=== PATIENT | female | born 1990 | race African-American/Black ===

== ENCOUNTER 2016-07-15 14:35 | Emergency (ER) | payer MEDICAID ==
--- NOTE | 2016-07-15 14:57 | ER Document Report ---
ED Medical Screen (RME) - General Stated Complaint: STOMACH PAIN Time seen by provider: 14:56 Mode of Arrival: Ambulatory Information source: Patient Notes: 26-year-old female complaining of low abdominal pain and dysuria. She thinks she might have a urinary tract infection she saw some blood in her urine yesterday. No vaginal discharge. She did vomit once yesterday. No diarrhea. No fever or chills. LMP 12-23 TRAVEL OUTSIDE OF THE [place] IN LAST 30 DAYS: No - Related Data Allergies/Adverse Reactions: No Known Allergies Allergy (Verified 07/15/16 14:54) Past Medical History - Immunizations Hx Diphtheria, Pertussis, Tetanus Vaccination: Yes Physical Exam - Vital signs Vitals: Temp Pulse Resp BP Pulse Ox 98.0 F 62 16 126/66 H 100 07/15/16 14:51 07/15/16 14:51 07/15/16 14:51 07/15/16 14:51 07/15/16 14:51 Course - Vital Signs Vital signs: Temp Pulse Resp BP Pulse Ox 98.0 F 62 16 126/66 H 100 07/15/16 14:51 07/15/16 14:51 07/15/16 14:51 07/15/16 14:51 07/15/16 14:51
--- NOTE | 2016-07-15 15:40 | ER Document Report ---
ED GI/ - General Mode of Arrival: Ambulatory TRAVEL OUTSIDE OF THE [place] IN LAST 30 DAYS: No - HPI Patient complains to provider of: Abdominal pain, Pelvic pain Onset: Yesterday Location: Epigastric, Pelvis Menstrual period history: Irregular Associated symptoms: Other - see above - General Chief Complaint: Abdominal Pain Stated Complaint: STOMACH PAIN Notes: 26 year old female with history of gonorrhea infection ("years ago") presents to the ED complaining of epigastric and pelvic pain that started yesterday. Patient additionally complains of hematuria, and denies burning with urination, abnormal bowel movements, or vaginal discharge. Patient states that she has a history of irregular menstrual periods and explains that she missed her period in April and May, with a normal cycle in June. Patient explains that she had a similar episode of abdominal and pelvic pain back in April and May. Patient has been twice with 1 . Patient receives OB[facility]IC[facility] [place]. ([facility]) - Related Data Allergies/Adverse Reactions: No Known Allergies Allergy (Verified 07/15/16 14:54) Past Medical History - General Information source: Patient - Social History Smoking Status: Current Every Day Smoker Chew tobacco use (# tins/day): No Frequency of alcohol use: Occasional Drug Abuse: None Family History: Reviewed & Not Pertinent Patient has suicidal ideation: No Patient has homicidal ideation: No Renal/ Medical History: Reports: Other - history of Conorrhea Surgical Hx: Negative - Immunizations Hx Diphtheria, Pertussis, Tetanus Vaccination: Yes Review of Systems - Review of Systems Constitutional: No symptoms reported EENT: No symptoms reported Cardiovascular: No symptoms reported Respiratory: No symptoms reported Gastrointestinal: See HPI, Abdominal pain - epigastric, Nausea Genitourinary: See HPI, Hematuria, Pain - pelvic. denies: Burning Female Genitourinary: See HPI, Irregular period. denies: Vaginal discharge Musculoskeletal: No symptoms reported Skin: No symptoms reported Hematologic/Lymphatic: No symptoms reported Neurological/Psychological: No symptoms reported -: Yes All other systems reviewed and negative Physical Exam - Vital signs Interpretation: Normal - General General appearance: Alert In distress: None - HEENT Head: Normocephalic, Atraumatic Eyes: Normal Extraocular movements intact: Yes Pupils: PERRL - Respiratory Respiratory status: No respiratory distress Breath sounds: Normal - Cardiovascular Rhythm: Regular Heart sounds: Normal auscultation - Abdominal Inspection: Normal Distension: No distension Bowel sounds: Normal Tenderness: Tender - mild suprapubic TTP - Back Back: Normal - Extremities General upper extremity: Normal inspection, Normal ROM General lower extremity: Normal inspection, Normal ROM - Neurological Neuro grossly intact: Yes Cognition: Normal Orientation: AAOx4 Jeff Coma Scale Eye Opening: Spontaneous Jeff Coma Scale Verbal: Oriented Jeff Coma Scale Motor: Obeys Commands [place] Coma Scale Total: 15 Speech: Normal - Psychological Associated symptoms: Normal affect, Normal mood - Skin Skin Temperature: Warm Skin Moisture: Dry Skin Color: Normal - Vital signs Vitals: Temp Pulse Resp BP Pulse Ox 98.0 F 62 16 126/66 H 100 07/15/16 14:51 07/15/16 14:51 07/15/16 14:51 07/15/16 14:51 07/15/16 14:51 ([facility]IL[facility]AM[facility]) Course - Re-evaluation Re-evalutation: 07/15/16 16:54 I personally performed the services described in the documentation, reviewed and edited the documentation which was dictated to my scribe in my presence, and it accurately records my words and actions. Patient presents the emergency department with mild suprapubic tenderness and when she urinated she saw some blood. She has no associated flank pain abdominal pain fevers chills nausea vomiting or diarrhea. She has no bleeding when she goes to the bathroom or history of trauma. She has no history of kidney stones pelvic pain discomfort sexual intercourse. She has no acute vaginal discharge or complaints from a pelvic standpoint. She does have a urinary tract infection is otherwise well-appearing nontoxic she'll abdominal examinations no guarding rebound rigidity. We will DC on Macrobid close 2 to three-day follow primary care physician and discussed reasons for ED return sooner (NILES ADAMSON) - Vital Signs Vital signs: Temp Pulse Resp BP Pulse Ox 98.2 F 82 16 129/82 H 100 07/15/16 17:31 07/15/16 17:31 07/15/16 17:31 07/15/16 17:31 07/15/16 17:31 (NILES ADAMSON) ([facility]) - Laboratory Laboratory results interpreted by me: 07/15/16 15:36 Ur Leukocyte Esterase SMALL H (NILES ADAMSON) Scribe Documentation - Scribe Written by Scribe:: Holley Zelaya, 07/15/2016 17:15 acting as scribe for :: Deangelo
[2016-07-15 16:04] LABS: APPEARANCE,URINE SLIGHTLY-CLOUDY; BILIRUBIN,URINE NEGATIVE (NEGATIVE); GLUCOSE, URINE NEGATIVE (NEGATIVE); KETONES,URINE NEGATIVE (NEGATIVE); LEUKOCYTE ESTERASE,URINE SMALL (NEGATIVE); NITRITE,URINE NEGATIVE (NEGATIVE); PROTEIN,URINE NEGATIVE (NEGATIVE); URINE SPECIFIC GRAVITY 1.018; UROBILINOGEN,URINE NEGATIVE mg/dL (<2.0)
[2016-07-15 17:32] VITALS: BP 129/82
--- NOTE | 2016-07-24 20:30 | ER Document Report ---
Doctor's Note Notes: 07/24/16 20:30 diagnosis 1. acute uti
== END 2016-07-15 17:32 | disposition home or self-care (01) ==
LOC: ER 14:35
DX: N39.0 Urinary tract infection, site not specified (principal); R10.2 Pelvic and perineal pain; R10.84 Generalized abdominal pain; R31.9 Hematuria, unspecified; R11.0 Nausea; F17.200 Nicotine dependence, unspecified, uncomplicated
CPT/HCPCS: 81001; 81025; 99284

== ENCOUNTER 2017-03-03 13:46 | Emergency (ER) | payer MEDICAID ==
--- NOTE | 2017-03-03 13:59 | ER Document Report ---
ED Medical Screen (RME) - General Chief Complaint: Abdominal Pain Stated Complaint: ABDOMINAL CRAMPING Time Seen by Provider: 03/03/17 13:54 TRAVEL OUTSIDE OF THE [place] IN LAST 30 DAYS: No - HPI Notes: 03/03/17 13:57 Patient is a 26-year-old female who presents the ED complaining of pelvic cramping and pain 1 week with development of white cloudy discharge, foul odor over the last 3 days. Patient states that she may have another bacterial infection. Her last menstrual period ended 4 days ago. She still eating and drinking without any difficulties. Her bowel movements have been regular. No trouble urinating. Patient denies any other significant past medical history or drug allergies. Denies any headache, fever, URI, sore throat, chest pain, palpitations, syncope, cough, shortness of breath, wheeze, dyspnea, nausea/ vomiting/diarrhea, urinary retention, dysuria, hematuria, or rash. I have treated and performed a rapid initial assessment of this patient. A comprehensive ED assessment and evaluation of the patient, analysis of test results and completion of medical decision making process will be conducted by additional ED providers. - Related Data Allergies/Adverse Reactions: No Known Allergies Allergy (Verified 03/03/17 13:51) Past Medical History Renal/ Medical History: Denies: Hx Peritoneal Dialysis - Immunizations Hx Diphtheria, Pertussis, Tetanus Vaccination: Yes Physical Exam - Vital signs Vitals: Temp Pulse Resp BP Pulse Ox 97.8 F 63 16 128/81 H 97 03/03/17 13:51 03/03/17 13:51 03/03/17 13:51 03/03/17 13:51 03/03/17 13:51 - Respiratory Respiratory status: No respiratory distress Breath sounds: Normal - Cardiovascular Rhythm: Regular Heart sounds: Normal auscultation Course - Vital Signs Vital signs: Temp Pulse Resp BP Pulse Ox 97.8 F 63 16 128/81 H 97 03/03/17 13:51 03/03/17 13:51 03/03/17 13:51 03/03/17 13:51 03/03/17 13:51
[2017-03-03 16:04] LABS: APPEARANCE,URINE SLIGHTLY-CLOUDY; BILIRUBIN,URINE NEGATIVE (NEGATIVE); GLUCOSE, URINE NEGATIVE (NEGATIVE); KETONES,URINE NEGATIVE (NEGATIVE); LEUKOCYTE ESTERASE,URINE NEGATIVE (NEGATIVE); NITRITE,URINE NEGATIVE (NEGATIVE); PROTEIN,URINE NEGATIVE (NEGATIVE); URINE SPECIFIC GRAVITY 1.021; UROBILINOGEN,URINE NEGATIVE mg/dL (<2.0)
--- NOTE | 2017-03-03 16:27 | ER Document Report ---
ED GI/ - General Chief Complaint: Abdominal Pain Stated Complaint: ABDOMINAL CRAMPING Time Seen by Provider: 03/03/17 13:54 Mode of Arrival: Ambulatory Information source: Patient TRAVEL OUTSIDE OF THE [place] IN LAST 30 DAYS: No - HPI Patient complains to provider of: Pelvic pain, Vaginal discharge Onset: Last week Timing/Duration: Gradual, Persistent Quality of pain: Achy, Cramping Severity at maximum: Mild Severity in ED: Mild Location: Suprapubic Sexual history: Active Associated symptoms: Nausea, Vaginal discharge Exacerbated by: Denies Relieved by: Denies Similar symptoms previously: Yes Recently seen / treated by doctor: No Notes: 03/03/17 16:26 Patient is a 26-year-old female presenting to the emergency room today complaining of one-week history of stomach cramping in the lower part of her abdomen, she reports associated nausea but no vomiting and diarrhea, no fever, no dysuria or hematuria, states her discharge is watery and white and odorous, she denies being , she does admit to having unprotected intercourse with her partner for quite some time, no concerns for sexually transmitted disease, she does have a history of bacterial vaginosis last year with similar symptoms - Related Data Allergies/Adverse Reactions: No Known Allergies Allergy (Verified 03/03/17 13:51) Past Medical History - General Information source: Patient - Social History Smoking Status: Never Smoker Chew tobacco use (# tins/day): No Frequency of alcohol use: None Drug Abuse: None Family History: Reviewed & Not Pertinent Renal/ Medical History: Denies: Hx Peritoneal Dialysis Past Surgical History: Reports: Hx Breast Surgery - Immunizations Hx Diphtheria, Pertussis, Tetanus Vaccination: Yes Review of Systems - Review of Systems Constitutional: No symptoms reported EENT: No symptoms reported Cardiovascular: No symptoms reported Respiratory: No symptoms reported Gastrointestinal: No symptoms reported Genitourinary: No symptoms reported Female Genitourinary: See HPI Musculoskeletal: No symptoms reported Skin: No symptoms reported Hematologic/Lymphatic: No symptoms reported Neurological/Psychological: No symptoms reported -: Yes All other systems reviewed and negative Physical Exam - Vital signs Vitals: Temp Pulse Resp BP Pulse Ox 97.8 F 63 16 128/81 H 97 03/03/17 13:51 03/03/17 13:51 03/03/17 13:51 03/03/17 13:51 03/03/17 13:51 Interpretation: Normal - General General appearance: Appears well, Alert - HEENT Head: Normocephalic, Atraumatic Eyes: Normal Pupils: PERRL - Respiratory Respiratory status: No respiratory distress Chest status: Nontender Breath sounds: Normal Chest palpation: Normal - Cardiovascular Rhythm: Regular Heart sounds: Normal auscultation Murmur: No - Abdominal Inspection: Normal Distension: No distension Bowel sounds: Normal Tenderness: Nontender Organomegaly: No organomegaly - Genitourinary External exam: Normal Speculum exam: Vaginal discharge - Thick brownish colored discharge Vaginal bleeding: None Bimanuel exam: Normal - Back Back: Normal, Nontender - Extremities General upper extremity: Normal inspection, Nontender, Normal color, Normal ROM , Normal temperature General lower extremity: Normal inspection, Nontender, Normal color, Normal ROM , Normal temperature, Normal weight bearing. No: Arthur's sign - Neurological Neuro grossly intact: Yes Cognition: Normal Orientation: AAOx4 Jeff Coma Scale Eye Opening: Spontaneous [place] Coma Scale Verbal: Oriented Jeff Coma Scale Motor: Obeys Commands [place] Coma Scale Total: 15 Speech: Normal Motor strength normal: LUE, RUE, LLE, RLE Sensory: Normal - Psychological Associated symptoms: Normal affect, Normal mood - Skin Skin Temperature: Warm Skin Moisture: Dry Skin Color: Normal Course - Re-evaluation Re-evalutation: 03/04/17 00:49 Laboratory findings were discussed with patient at bedside which are unremarkable, symptoms are consistent with likely bacterial vaginosis, she was given a prescription for Flagyl and advised to follow-up with the primary care provider or return if symptoms worsen, patient acknowledges understanding and agreement with this plan - Vital Signs Vital signs: Temp Pulse Resp BP Pulse Ox 98.1 F 64 18 124/86 H 64 L 03/03/17 17:10 03/03/17 17:10 03/03/17 17:10 03/03/17 17:10 03/03/17 17:10 Discharge - Discharge Clinical Impression: Pelvic cramping Condition: Stable Disposition: HOME, SELF-CARE Instructions: Abdominal Pain ([facility]) Additional Instructions: Follow up with your primary care provider in one to 2 days. Return to the emergency room immediately if symptoms worsen or any additional concerns. Prescriptions: Metronidazole [Flagyl 500 mg Tablet] 500 mg PO TID #30 tablet
[2017-03-03 17:13] VITALS: BP 124/86
[2017-03-03 18:05] LABS: CHLAM PCR NOT DETECTED (NOT DETECT)
== END 2017-03-03 17:13 | disposition home or self-care (01) ==
LOC: ER 13:46
DX: R10.2 Pelvic and perineal pain (principal); R11.0 Nausea; N89.8 Other specified noninflammatory disorders of vagina
CPT/HCPCS: 81001; 81025; 87210; 87491; 87591; 99284

== ENCOUNTER 2018-11-09 17:05 | Emergency (ER) | payer MEDICAID ==
--- NOTE | 2018-11-09 18:51 | ER Document Report ---
ED Medical Screen (RME) - General Chief Complaint: Chest Pain Stated Complaint: CHEST PAIN Time Seen by Provider: 11/09/18 18:48 Mode of Arrival: Ambulatory Information source: Patient Notes: 28-year-old female presented to ED for complaint of right upper quadrant abdominal pain and right lower chest pain started this morning. She states she has had very sharp pains. She denies any nausea vomiting or fever. She denies any history of any gallbladder problems. She is alert oriented respirations regular and unlabored. She states it does hurt a lot to take a deep breath. Only medical history is a cyst on her left breast which was removed. She states she smokes maybe 1 cigarette a day does not drink or do any drugs. 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 I have greeted and performed a rapid initial assessment of this patient. A comprehensive ED assessment and evaluation of the patient, analysis of test results and completion of medical decision making process will be conducted by an additional ED providers. TRAVEL OUTSIDE OF THE [place] IN LAST 30 DAYS: No - Related Data Allergies/Adverse Reactions: No Known Allergies Allergy (Verified 11/09/18 17:08) Past Medical History Renal/ Medical History: Denies: Hx Peritoneal Dialysis Past Surgical History: Reports: Hx Breast Surgery - Immunizations Hx Diphtheria, Pertussis, Tetanus Vaccination: Yes Physical Exam - Vital signs Vitals: Temp Pulse Resp BP Pulse Ox 97.4 F 61 16 130/90 H 100 11/09/18 17:10 11/09/18 17:10 11/09/18 17:10 11/09/18 17:10 11/09/18 17:10 Course - Vital Signs Vital signs: Temp Pulse Resp BP Pulse Ox 97.4 F 61 16 130/90 H 100 11/09/18 17:10 11/09/18 17:10 11/09/18 17:10 11/09/18 17:10 11/09/18 17:10
--- NOTE | 2018-11-09 19:42 | RADIOLOGY REPORT (SQ) ---
EXAM DESCRIPTION: CHEST 2 VIEWS COMPLETED DATE/TIME: 11/09/2018 7:30 pm REASON FOR STUDY: right lower chest pain COMPARISON: None. EXAM PARAMETERS: NUMBER OF VIEWS: two views TECHNIQUE: Digital Frontal and Lateral radiographic views of the chest acquired. RADIATION DOSE: NA LIMITATIONS: none FINDINGS: LUNGS AND PLEURA: No opacities, masses or pneumothorax. No pleural effusion. MEDIASTINUM AND HILAR STRUCTURES: No masses or contour abnormalities. HEART AND VASCULAR STRUCTURES: Heart normal size. No evidence for failure. BONES: No acute findings. HARDWARE: None in the chest. OTHER: No other significant finding. IMPRESSION: NO ACUTE RADIOGRAPHIC FINDING IN THE CHEST. TECHNICAL DOCUMENTATION: JOB ID: [id number] [employer]- All Rights Reserved Reading location - IP/workstation name: [email or web address]
[2018-11-09 19:44] LABS: APPEARANCE,URINE CLEAR; BILIRUBIN,URINE NEGATIVE (NEGATIVE); COLOR,URINE YELLOW; GLUCOSE, URINE NEGATIVE (NEGATIVE); KETONES,URINE TRACE mg/dL (NEGATIVE); LEUKOCYTE ESTERASE,URINE NEGATIVE (NEGATIVE); NITRITE,URINE NEGATIVE (NEGATIVE); PROTEIN,URINE NEGATIVE (NEGATIVE); URINE SPECIFIC GRAVITY 1.017; UROBILINOGEN,URINE NEGATIVE mg/dL (<2.0)
[2018-11-09 19:45] LABS: ABSOLUTE EOSINOPHILS # (AUTO) 0.1 10^3/uL (0.0-0.6); ABSOLUTE LYMPHOCYTES (AUTO) 1.8 10^3/uL (0.5-4.7); ABSOLUTE MONOCYTES (AUTO) 0.3 10^3/uL (0.1-1.4); ABSOLUTE NEUT (AUTO) 2.7 10^3/uL (1.7-8.2); BASOPHILS % (AUTO) 0.6 % (0-2); EOSINOPHILS % (AUTO) 1.4 % (0-6); HEMATOCRIT 45.5 % (36.0-47.0); HEMOGLOBIN 15.7 g/dL (12.0-15.5); LYMPHOCYTES % (AUTO) 36.6 % (13-45); MEAN CORPUSCULAR HEMOGLOBIN 34.1 pg (27.0-33.4); MEAN CORPUSCULAR HGB CONC 34.4 g/dL (32.0-36.0); MEAN CORPUSCULAR VOLUME 99 fl (80-97); MONOCYTES % (AUTO) 6.9 % (3-13); PLATELET COUNT 288 10^3/uL (150-450); SEGMENTED NEUTROPHILS % (AUTO) 54.5 % (42-78); TOTAL CELLS COUNTED % (AUTO) 100 %
[2018-11-09 20:10] LABS: ALANINE AMINOTRANSFERASE 29 U/L (9-52); ALBUMIN 4.8 g/dL (3.5-5.0); ALKALINE PHOSPHATASE 93 U/L (38-126); ANION GAP 13 (5-19); ASPARTATE AMINO TRANSFERASE 41 U/L (14-36); BILIRUBIN,DIRECT 0.3 mg/dL (0.0-0.4); BILIRUBIN,TOTAL 1.6 mg/dL (0.2-1.3); BLOOD UREA NITROGEN 10 mg/dL (7-20); CALCIUM 10.7 mg/dL (8.4-10.2); CARBON DIOXIDE 29 mmol/L (22-30); CHLORIDE 98 mmol/L (98-107); GLUCOSE 92 mg/dL (75-110); LIPASE 174.8 U/L (23-300); POTASSIUM 3.9 mmol/L (3.6-5.0); SODIUM 139.6 mmol/L (137-145); TOTAL PROTEIN 8.6 g/dL (6.3-8.2)
--- NOTE | 2018-11-09 20:34 | RADIOLOGY REPORT (SQ) ---
EXAM DESCRIPTION: US ABDOMEN LIMITED COMPLETED DATE/TME: 11/09/2018 18:49 CLINICAL HISTORY: 28 years, Female, right upper quad and right chest pain COMPARISON: None. TECHNIQUE: Right upper quadrant ultrasound was performed. LIMITATIONS: None. FINDINGS: Visualized portions of the pancreas appear normal. Abdominal aortic measurements are as follows: Proximal abdominal aorta: 1.8 cm Mid abdominal aorta: 1.3 cm Distal abdominal aorta: 1.1 cm. The liver is normal in echogenicity, measuring 15.5 cm in length. Antegrade flow is documented within the main portal vein. Gallbladder wall thickness measures 2 mm. Sonographic Kirkpatrick's sign was negative. Common bile duct measures 2 mm. No gallstones. Right kidney measures 11.8 cm in length. No hydronephrosis. No free fluid is identified within the abdomen. IMPRESSION: No acute abnormality within the right upper quadrant. copyright 2010 [employer]- All Rights Reserved
[2018-11-09] MEDS ORDERED: MAG HYDROX/AL HYDROX/SIMETH SUSP 30 ML UDCUP PO ONE (20:38)
[2018-11-09] MEDS ORDERED: LIDOCAINE 2% VISCOUS SOLN 20 ML UDCUP PO ONE (20:38)
[2018-11-09] MEDS ORDERED: METOCLOPRAMIDE HCL ORAL SOLN 10 MG/10 ML UDCUP PO ONE (20:38)
--- NOTE | 2018-11-09 20:40 | ER Document Report ---
ED General - General Chief Complaint: Chest Pain Stated Complaint: CHEST PAIN Time Seen by Provider: 11/09/18 18:48 Mode of Arrival: Ambulatory Information source: Patient, [facility] Records Notes: 28-year-old female presents with right upper quadrant abdominal pain that started this morning. Patient states that she was getting her daughter ready for school when she had a sudden onset of sharp stabbing pain. Patient denies associated nausea, vomiting, fever, chills. Patient denies prior similar symptoms. Patient did take Tylenol without relief. Patient does admit to occasional drinking, occasional smoking and denies drug use. TRAVEL OUTSIDE OF THE [place] IN LAST 30 DAYS: No - HPI Onset: This morning Onset/Duration: Sudden, Persistent, Better Quality of pain: Burning, Sharp Severity: Mild Pain Level: 1 Associated symptoms: Nausea. denies: Body/muscle aches, Chest pain, Diarrhea, Fever, Vomiting Exacerbated by: Food Relieved by: Denies Similar symptoms previously: Yes Recently seen / treated by doctor: No - Related Data Allergies/Adverse Reactions: No Known Allergies Allergy (Verified 11/09/18 17:08) Past Medical History - General Information source: Patient - Social History Smoking Status: Current Some Day Smoker Frequency of alcohol use: Occasional Drug Abuse: None Lives with: Family Family History: Reviewed & Not Pertinent Patient has suicidal ideation: No Patient has homicidal ideation: No Renal/ Medical History: Denies: Hx Peritoneal Dialysis GI Medical History: Reports: Hx Gastroesophageal Reflux Disease Past Surgical History: Reports: Hx Breast Surgery - Immunizations Hx Diphtheria, Pertussis, Tetanus Vaccination: Yes Review of Systems - Review of Systems Notes: REVIEW OF SYSTEMS: CONSTITUTIONAL : Denies fever, chills, or sweats. Denies recent illness. Denies weight loss, recent hospitalizations. EENT: Denies visual changes, eye pain. Denies sore throat, oral lesions, difficulty swallowing. CARDIOVASCULAR: Denies chest pain. Denies palpitations. Denies lower extremity edema. RESPIRATORY: Denies cough. Denies shortness of breath, wheezing. GASTROINTESTINAL: Denies abdominal distention. Denies vomiting, or diarrhea. Denies blood in vomitus, stools, or per rectum. Denies black, tarry stools. Denies constipation. GENITOURINARY: Denies difficulty urinating, painful urination, frequency, blood in urine, or vaginal discharge. MUSCULOSKELETAL: Denies back or neck pain or stiffness. Denies joint pain or swelling. SKIN: Denies rash, lesions or sores. HEMATOLOGIC : Denies easy bruising or bleeding. LYMPHATIC: Denies swollen glands. NEUROLOGICAL: Denies confusion or altered mental status. Denies loss of consciousness. Denies dizziness or lightheadedness. Denies headache. Denies weakness or paralysis. Denies problems difficulty with ambulation, slurred speech. Denies sensory loss, numbness, or tingling. Denies seizures. PSYCHIATRIC: Denies anxiety or stress. Denies depression, suicidal ideation, or homicidal ideation. Denies visual or auditory hallucinations. Physical Exam - Vital signs Vitals: Temp Pulse Resp BP Pulse Ox 97.4 F 61 16 130/90 H 100 11/09/18 17:10 11/09/18 17:10 11/09/18 17:10 11/09/18 17:10 11/09/18 17:10 - Notes Notes: PHYSICAL EXAMINATION: GENERAL: Well-appearing, well-nourished and in no acute distress. HEAD: Atraumatic, normocephalic. EYES: Pupils equal round and reactive to light, extraocular movements intact, conjunctiva are normal. ENT: Nares patent, oropharynx clear without exudates. Moist mucous membranes. NECK: Normal range of motion, supple without lymphadenopathy LUNGS: Breath sounds clear to auscultation bilaterally and equal. No wheezes rales or rhonchi. HEART: Regular rate and rhythm without murmurs ABDOMEN: Soft, nontender, nondistended abdomen. No guarding, no rebound. No masses appreciated. Female : deferred Musculoskeletal: Normal range of motion, no pitting or edema. No cyanosis. NEUROLOGICAL: Cranial nerves grossly intact. Normal speech, normal gait. Normal sensory, motor exams PSYCH: Normal mood, normal affect. SKIN: Warm, Dry, normal turgor, no rashes or lesions noted. Course - Re-evaluation Re-evalutation: 11/09/18 21:41 Laboratory 11/09/18 11/09/18 11/09/18 19:17 19:17 19:17 WBC 5.0 RBC 4.60 Hgb 15.7 H Hct 45.5 MCV 99 H MCH 34.1 H MCHC 34.4 RDW 13.0 Plt Count 288 Seg Neutrophils % 54.5 Lymphocytes % 36.6 Monocytes % 6.9 Eosinophils % 1.4 Basophils % 0.6 Absolute Neutrophils 2.7 Absolute Lymphocytes 1.8 Absolute Monocytes 0.3 Absolute Eosinophils 0.1 Absolute Basophils 0.0 Sodium 139.6 Potassium 3.9 Chloride 98 Carbon Dioxide 29 Anion Gap 13 BUN 10 Creatinine 0.86 Est GFR ( Amer) > 60 Est GFR (Non-Af Amer) > 60 Glucose 92 Calcium 10.7 H Total Bilirubin 1.6 H Direct Bilirubin 0.3 Neonat Total Bilirubin Not Reportable Neonat Direct Bilirubin Not Reportable Neonat Indirect Bili Not Reportable AST 41 H ALT 29 Alkaline Phosphatase 93 Troponin I Total Protein 8.6 H Albumin 4.8 Lipase 174.8 Serum HCG, Qual NEGATIVE Urine Color Urine Appearance Urine pH Ur Specific [place] Urine Protein Urine Glucose (UA) Urine Ketones Urine Blood Urine Nitrite Urine Bilirubin Urine Urobilinogen Ur Leukocyte Esterase Urine WBC (Auto) Urine RBC (Auto) Squamous Epi Cells Auto Urine Mucus (Auto) Urine Ascorbic Acid 11/09/18 11/09/18 19:17 19:17 WBC RBC Hgb Hct MCV MCH MCHC RDW Plt Count Seg Neutrophils % Lymphocytes % Monocytes % Eosinophils % Basophils % Absolute Neutrophils Absolute Lymphocytes Absolute Monocytes Absolute Eosinophils Absolute Basophils Sodium Potassium Chloride Carbon Dioxide Anion Gap BUN Creatinine Est GFR ( Amer) Est GFR (Non-Af Amer) Glucose Calcium Total Bilirubin Direct Bilirubin Neonat Total Bilirubin Neonat Direct Bilirubin Neonat Indirect Bili AST ALT Alkaline Phosphatase Troponin I < 0.012 Total Protein Albumin Lipase Serum HCG, Qual Urine Color YELLOW Urine Appearance CLEAR Urine pH 6.0 Ur Specific [place] 1.017 Urine Protein NEGATIVE Urine Glucose (UA) NEGATIVE Urine Ketones TRACE H Urine Blood NEGATIVE Urine Nitrite NEGATIVE Urine Bilirubin NEGATIVE Urine Urobilinogen NEGATIVE Ur Leukocyte Esterase NEGATIVE Urine WBC (Auto) 1 Urine RBC (Auto) 0 Squamous Epi Cells Auto 1 Urine Mucus (Auto) MOD Urine Ascorbic Acid NEGATIVE Abdomen Ultrasound 11/09/18 18:49 IMPRESSION: No acute abnormality within the right upper quadrant. copyright 2011 [employer]- All Rights Reserved Chest X-Ray 11/09/18 18:49 IMPRESSION: NO ACUTE RADIOGRAPHIC FINDING IN THE CHEST. Temp Pulse Resp BP Pulse Ox 97.4 F 61 16 130/90 H 100 11/09/18 17:10 11/09/18 17:10 11/09/18 17:10 11/09/18 17:10 11/09/18 17:10 11/10/18 12:36 28-year-old female presents with complaint of right upper quadrant abdominal pain that started this morning after eating eggs and espinal. Vital signs reviewed and within normal limits. Patient does not appear toxic or dehydrated. She is in no acute distress. Previous nursing notes and medical records reviewed. Patient describes the pain as burning, sharp and better since arrival. Patient does have a history of reflux states that she has been off her of her reflux medication for over 1 year now. Patient does state that she drinks frequently and eats spicy foods. Patient did receive a GI cocktail and on reevaluation states her pain is improved. Patient will be placed on Carafate. Patient was discharged home in stable condition. Patient is tolerating p.o. Patient was evaluated and treated as appropriate for the patient's presenting symptoms and complaint, with consideration of any critical or life threatening conditions that may be associated with their obtained history and exam as noted above. All results were discussed with patient. Patient provided the opportunity to ask questions, and express concerns. Patient was educated on treatments based on their presumed diagnosis as noted above. At this time we will discharge the patient with return precautions and follow-up recommendations. Verbal discharge instructions given a the bedside. Medication warnings reviewed. Patient is in agreement with this plan and has verbalized understanding of return precautions. After careful consideration I feel that that patient can be safely discharged from the emergency department, they were advised to followup with a primary care physician in 2-3 days. Dictation on this chart was performed using voice recognition software and may result in unintended grammatical, spelling, syntax or errors. - Vital Signs Vital signs: Temp Pulse Resp BP Pulse Ox 97.9 F 61 28 H 139/93 H 100 11/09/18 21:07 11/09/18 17:10 11/09/18 21:20 11/09/18 21:51 11/09/18 21:20 - Laboratory Result Diagrams: 11/09/18 19:17 11/09/18 19:17 Laboratory results interpreted by me: 11/09/18 11/09/18 11/09/18 19:17 19:17 19:17 Hgb 15.7 H MCV 99 H MCH 34.1 H Calcium 10.7 H Total Bilirubin 1.6 H AST 41 H Total Protein 8.6 H Urine Ketones TRACE H - Diagnostic Test Radiology reviewed: Image reviewed, Reports reviewed - EKG Interpretation by Me EKG shows normal: Sinus rhythm Rate: Normal Rhythm: NSR When compared to previous EKG there are: No significant change Discharge - Discharge Clinical Impression: Right upper quadrant abdominal pain, Gastritis Condition: Good Disposition: HOME, SELF-CARE Instructions: Evaluation of Upper Abdominal Pain ([facility]), Gastritis ([facility]) Additional Instructions: Follow up with your [id number] hours for further care or return to the ED IMMEDIATELY if symptoms worsen or you have any concerns. If you cannot afford to follow up with your primary care physician a list of low cost clinics have been provided at the end of your discharge papers as well. Most prescribed medications have multiple side effects. The safest thing to do is when filling your prescription speak to your pharmacist regarding possible interactions with your normal home medications and over the counter medications such as Ibuprofen, Tylenol, Benadryl. If you experience any symptoms that cause you discomfort or concern you should discontinue the medication immediately and return to the emergency room or call your primary care physician. Prescriptions: Sucralfate [Carafate 1 gm Tablet] 1 gm PO ACHS #14 tablet Forms: Elevated Blood Pressure, Return to Work
--- NOTE | 2018-11-09 20:45 | EKG REPORT ---
SEVERITY:- NORMAL ECG - SINUS RHYTHM : Confirmed by: Faby West MD 09-Nov-2018 20:44:43
[2018-11-09 21:51] VITALS: BP 139/93
== END 2018-11-09 21:52 | disposition home or self-care (01) ==
LOC: ER 17:05
DX: K29.70 Gastritis, unspecified, without bleeding (principal); R10.11 Right upper quadrant pain; F17.200 Nicotine dependence, unspecified, uncomplicated; Z87.19 Personal history of other diseases of the digestive system
CPT/HCPCS: 93005; 99284; 36415; 83690; 84703; 85025; 80053; 81001; 84484; 71046; 76705; 93010; J3490 ×3

== ENCOUNTER 2019-01-12 20:33 | Emergency (ER) | payer MEDICAID ==
[2019-01-12 20:44] VITALS: BP 127/76
--- NOTE | 2019-01-13 00:47 | ER Document Report ---
ED General - General Chief Complaint: Suture Removal Stated Complaint: REMOVE STITCHES, RIGHT WRIST, PAIN RIGHT ARM Time Seen by Provider: 01/13/19 00:42 TRAVEL OUTSIDE OF THE [place] IN LAST 30 DAYS: No - Related Data Allergies/Adverse Reactions: No Known Allergies Allergy (Verified 01/12/19 20:36) Past Medical History - Social History Family History: Reviewed & Not Pertinent Renal/ Medical History: Denies: Hx Peritoneal Dialysis GI Medical History: Reports: Hx Gastroesophageal Reflux Disease Past Surgical History: Reports: Hx Breast Surgery - Immunizations Hx Diphtheria, Pertussis, Tetanus Vaccination: Yes Physical Exam - Vital signs Vitals: Temp Pulse Resp BP Pulse Ox 98.4 F 89 16 127/76 H 98 01/12/19 20:43 01/12/19 20:43 01/12/19 20:43 01/12/19 20:43 01/12/19 20:43 Course - Vital Signs Vital signs: Temp Pulse Resp BP Pulse Ox 98.4 F 89 16 127/76 H 98 01/12/19 20:43 01/12/19 20:43 01/12/19 20:43 01/12/19 20:43 01/12/19 20:43
== END 2019-01-13 00:46 | disposition left against medical advice (07) ==
LOC: ER 20:33
DX: Z53.21 Procedure and treatment not carried out due to patient leaving prior to being seen by health care provider (principal); M25.531 Pain in right wrist

== ENCOUNTER 2019-04-17 12:31 | Emergency (ER) | payer MEDICAID ==
[2019-04-17] MEDS ORDERED: ONDANSETRON HCL INJ/PF 4 MG/2 ML SDV IV ONE (13:31)
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
[2019-04-17 14:09] LABS: ABSOLUTE EOSINOPHILS # (AUTO) 0.2 10^3/uL (0.0-0.6); ABSOLUTE LYMPHOCYTES (AUTO) 1.6 10^3/uL (0.5-4.7); ABSOLUTE MONOCYTES (AUTO) 0.4 10^3/uL (0.1-1.4); ABSOLUTE NEUT (AUTO) 4.4 10^3/uL (1.7-8.2); BASOPHILS % (AUTO) 0.4 % (0-2); EOSINOPHILS % (AUTO) 2.7 % (0-6); HEMATOCRIT 45.1 % (36.0-47.0); HEMOGLOBIN 15.4 g/dL (12.0-15.5); LYMPHOCYTES % (AUTO) 24.5 % (13-45); MEAN CORPUSCULAR HEMOGLOBIN 33.6 pg (27.0-33.4); MEAN CORPUSCULAR HGB CONC 34.1 g/dL (32.0-36.0); MEAN CORPUSCULAR VOLUME 98 fl (80-97); MONOCYTES % (AUTO) 5.6 % (3-13); PLATELET COUNT 274 10^3/uL (150-450); RED BLOOD COUNT 4.58 10^6/uL (3.72-5.28); RED CELL DISTRIBUTION WIDTH 12.6 % (11.5-14.0); SEGMENTED NEUTROPHILS % (AUTO) 66.8 % (42-78); TOTAL CELLS COUNTED % (AUTO) 100 %; WHITE BLOOD COUNT 6.5 10^3/uL (4.0-10.5)
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
[2019-04-17 14:29] LABS: ALBUMIN 5.1 g/dL (3.5-5.0); ALKALINE PHOSPHATASE 73 U/L (38-126); ANION GAP 11 (5-19); ASPARTATE AMINO TRANSFERASE 26 U/L (14-36); BILIRUBIN,DIRECT 0.1 mg/dL (0.0-0.4); BILIRUBIN,TOTAL 1.1 mg/dL (0.2-1.3); BLOOD UREA NITROGEN 12 mg/dL (7-20); CALCIUM 10.7 mg/dL (8.4-10.2); CARBON DIOXIDE 29 mmol/L (22-30); CHLORIDE 99 mmol/L (98-107); GLUCOSE 84 mg/dL (75-110); POTASSIUM 4.8 mmol/L (3.6-5.0); TOTAL PROTEIN 8.9 g/dL (6.3-8.2)
[2019-04-17 14:29] LABS: APPEARANCE,URINE SLIGHTLY-CLOUDY; BILIRUBIN,URINE NEGATIVE (NEGATIVE); COLOR,URINE YELLOW; GLUCOSE, URINE NEGATIVE (NEGATIVE); KETONES,URINE NEGATIVE (NEGATIVE); LEUKOCYTE ESTERASE,URINE NEGATIVE (NEGATIVE); NITRITE,URINE NEGATIVE (NEGATIVE); PROTEIN,URINE NEGATIVE (NEGATIVE); URINE SPECIFIC GRAVITY 1.018; UROBILINOGEN,URINE NEGATIVE mg/dL (<2.0)
[2019-04-17] MEDS ORDERED: KETOROLAC TROMETHAMINE INJ/PF 30 MG/1 ML SDV IV ONE (14:29)
[2019-04-17] MEDS ORDERED: NORMAL SALINE 1000 ML 1,000 ML IV ONE (14:29)
[2019-04-17 15:40] LABS: URINE AMPHETAMINES SCREEN NEGATIVE; URINE BARBITURATES SCREEN NEGATIVE; URINE BENZODIAZEPINES SCREEN NEGATIVE; URINE COCAINE SCREEN NEGATIVE; URINE MARIJUANA (THC) SCREEN NEGATIVE; URINE METHADONE SCREEN NEGATIVE; URINE PHENCYCLIDINE SCREEN NEGATIVE
[2019-04-17 17:07] VITALS: BP 116/78
== END 2019-04-17 17:07 | disposition home or self-care (01) ==
LOC: ER 12:31
DX: R11.2 Nausea with vomiting, unspecified (principal); R19.7 Diarrhea, unspecified; M79.601 Pain in right arm; G89.29 Other chronic pain; F11.10 Opioid abuse, uncomplicated; R10.9 Unspecified abdominal pain; M79.10 Myalgia, unspecified site; Z79.899 Other long term (current) drug therapy
CPT/HCPCS: 36415; 83690; 84703; 85025; 80053; 81001; 80307; J1885; J2405; J7030; 96361; 96374; 96375; 99284

== ENCOUNTER 2019-05-14 03:22 | Emergency (ER) | payer MEDICAID, OTHER ==
[2019-05-14] MEDS ORDERED: IBUPROFEN 600 MG TABLET PO ONE (07:01)
[2019-05-14] MEDS ORDERED: PREDNISONE 20 MG TABLET PO ONE (07:01)
--- NOTE | 2019-05-14 08:10 | RADIOLOGY REPORT (SQ) ---
EXAM DESCRIPTION: HUMERUS LEFT COMPLETED DATE/TIME: 05/14/2019 7:14 am REASON FOR STUDY: pain/injury COMPARISON: None. NUMBER OF VIEWS: Two views. TECHNIQUE: Two radiographic images were acquired of the left humerus to include elbow and shoulder i n at least one projection. LIMITATIONS: None. FINDINGS: MINERALIZATION: Normal. BONES: No acute fracture or dislocation. No worrisome bone lesions. SOFT TISSUES: No obvious swelling or foreign body. OTHER: No other significant finding. IMPRESSION: NEGATIVE STUDY OF THE LEFT HUMERUS. NO RADIOGRAPHIC EVIDENCE OF ACUTE INJURY. TECHNICAL DOCUMENTATION: JOB ID: [id number] [employer]- All Rights Reserved Reading location - IP/workstation name: [facility]
--- NOTE | 2019-05-14 09:16 | ER Document Report ---
ED Extremity Problem, Upper - General Chief Complaint: Numbness of Arm Stated Complaint: PAIN IN BOTH ARMS Time Seen by Provider: 05/14/19 07:01 TRAVEL OUTSIDE OF THE [place] IN LAST 30 DAYS: No - HPI Notes: This is a 29-year-old female who presents with a complaint of left upper extremity pain and paresthesias. 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 She states that she was on the pole last night dancing when she thinks she might have hurt her. She describes tingling down her left arm. She denies any other injuries. She describes her symptoms as moderate. Pain is worse with movement. - Related Data Allergies/Adverse Reactions: No Known Allergies Allergy (Verified 01/12/19 20:36) Past Medical History - Social History Smoking Status: Current Every Day Smoker Family History: Reviewed & Not Pertinent Patient has suicidal ideation: No Patient has homicidal ideation: No Renal/ Medical History: Denies: Hx Peritoneal Dialysis GI Medical History: Reports: Hx Gastroesophageal Reflux Disease Past Surgical History: Reports: Hx Breast Surgery - Immunizations Hx Diphtheria, Pertussis, Tetanus Vaccination: Yes Review of Systems - Review of Systems Cardiovascular: denies: Chest pain Gastrointestinal: denies: Abdominal pain Musculoskeletal: Muscle pain, Other - Left upper arm pain. denies: Neck pain Neurological/Psychological: Numbness, Tingling. denies: Headaches -: Yes All other systems reviewed and negative Physical Exam - Vital signs Vitals: Temp Pulse Resp BP Pulse Ox 98.4 F 88 16 141/77 H 100 05/14/19 03:47 05/14/19 03:47 05/14/19 03:47 05/14/19 03:47 05/14/19 03:47 - General General appearance: Appears well, Alert - Respiratory Respiratory status: No respiratory distress Chest status: Nontender Breath sounds: Normal Chest palpation: Normal - Cardiovascular Rhythm: Regular Heart sounds: Normal auscultation Murmur: No - Abdominal Inspection: Normal Distension: No distension Bowel sounds: Normal Tenderness: Nontender Organomegaly: No organomegaly - Extremities General upper extremity: Normal inspection, Tender - Soft tissue tenderness of the left proximal and mid humerus. No bony deformity. Slight subjective decreased sensation of the left mid forearm. Normal distal pulses., Normal color, Normal ROM, Normal temperature General lower extremity: Normal inspection, Nontender, Normal color, Normal ROM, Normal temperature, Normal weight bearing. No: Arthur's sign - Neurological Neuro grossly intact: Yes Cognition: Normal Orientation: AAOx4 Jeff Coma Scale Eye Opening: Spontaneous [place] Coma Scale Verbal: Oriented [place] Coma Scale Motor: Obeys Commands [place] Coma Scale Total: 15 Speech: Normal Motor strength normal: LUE, RUE, LLE, RLE Sensory: Normal - Psychological Associated symptoms: Normal affect, Normal mood Course - Re-evaluation Re-evalutation: 05/14/19 08:18 Differential diagnosis includes upper arm strain versus peripheral neuropathy likely secondary to strain from climbing or leaning on a pole. Will get plain films. 918 Patient reevaluated. She is doing well. Nonfocal neurologic exam. X-rays negative. She is stable for discharge. - Vital Signs Vital signs: Temp Pulse Resp BP Pulse Ox 98.4 F 88 16 141/77 H 100 05/14/19 03:47 05/14/19 03:47 05/14/19 03:47 05/14/19 03:47 05/14/19 03:47 Discharge - Discharge Clinical Impression: Paresthesia Muscle strain, upper arm Qualifiers: Encounter type: initial encounter Laterality: left Qualified Code(s): S46.912A - Strain of unspecified muscle, fascia and tendon at shoulder and upper arm level, left arm, initial encounter Condition: Good Disposition: HOME, SELF-CARE Instructions: Muscle Strain ([facility]), Numbness or Paresthesia ([facility]) Prescriptions: Prednisone [Deltasone 20 mg Tablet] 2 tab PO DAILY 5 Days #10 tablet Naproxen 500 mg PO BID PRN #14 tablet PRN Reason: Referrals: [facility] [NO LOCAL MD] - Follow up as needed
[2019-05-14 09:46] VITALS: BP 107/69
== END 2019-05-14 09:40 | disposition home or self-care (01) ==
LOC: ER 03:22
DX: S46.912A Strain of unspecified muscle, fascia and tendon at shoulder and upper arm level, left arm, initial encounter (principal); M79.602 Pain in left arm; R20.2 Paresthesia of skin; X58.XXXA Exposure to other specified factors, initial encounter; Y99.0 Civilian activity done for income or pay; F17.200 Nicotine dependence, unspecified, uncomplicated
CPT/HCPCS: 99283; 73060; J3490; J7512

== ENCOUNTER 2019-06-22 21:47 | Inpatient (IN) | payer MEDICAID ==
[2019-06-22] MEDS ORDERED: RINGERS SOLUTION,LACTATED 1,000 ML IV ONE (22:16)
--- NOTE | 2019-06-22 22:21 | ER Document Report ---
ED General - General Chief Complaint: Possible Overdose Stated Complaint: OVERDOSE Time Seen by Provider: 06/22/19 22:11 Notes: 29 year old female arrives sullen and withdrawn with reports from EMS she was found next to a bottle of tylenol that she appearently ingested. She will provide no history at this time. She reportedly did this in an attempt to hurt herself. She nods her head in an up and down manner when asked if she was trying to hurt herself. No other history is obtainable at this time. She does tell me - by head movements - she has no pain and denies etoh or drug use otherwise. No family or fiends available at this time for additional for additional history. TRAVEL OUTSIDE OF THE [place] IN LAST 30 DAYS: No - Related Data Allergies/Adverse Reactions: No Known Allergies Allergy (Verified 01/12/19 20:36) Past Medical History - Social History Smoking Status: Never Smoker Family History: Reviewed & Not Pertinent Patient has suicidal ideation: Yes Patient has homicidal ideation: No Renal/ Medical History: Denies: Hx Peritoneal Dialysis GI Medical History: Reports: Hx Gastroesophageal Reflux Disease Past Surgical History: Reports: Hx Breast Surgery - Immunizations Hx Diphtheria, Pertussis, Tetanus Vaccination: Yes Review of Systems - Review of Systems Constitutional: No symptoms reported EENT: No symptoms reported Cardiovascular: No symptoms reported Respiratory: No symptoms reported Gastrointestinal: No symptoms reported Genitourinary: No symptoms reported Female Genitourinary: No symptoms reported Musculoskeletal: No symptoms reported Skin: No symptoms reported Hematologic/Lymphatic: No symptoms reported Neurological/Psychological: No symptoms reported Physical Exam - Vital signs Vitals: Temp Pulse Resp BP Pulse Ox 98.3 F 79 14 120/77 99 06/22/19 21:47 06/22/19 21:47 06/22/19 21:47 06/22/19 21:47 06/22/19 21:47 Interpretation: Normal - General General appearance: Appears well, Alert - HEENT Head: Normocephalic, Atraumatic Eyes: Normal Pupils: PERRL - Respiratory Respiratory status: No respiratory distress Chest status: Nontender Breath sounds: Normal Chest palpation: Normal - Cardiovascular Rhythm: Regular Heart sounds: Normal auscultation Murmur: No - Abdominal Inspection: Normal Distension: No distension Bowel sounds: Normal Tenderness: Nontender Organomegaly: No organomegaly - Back Back: Normal, Nontender - Extremities General upper extremity: Normal inspection, Nontender, Normal color, Normal ROM, Normal temperature General lower extremity: Normal inspection, Nontender, Normal color, Normal ROM, Normal temperature, Normal weight bearing. 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 06/23/19 02:05 Poison center rec is to initiate mucomyst for her elevated acet level and acet overdose. Protocol has been initiated and faxxed to the pharmacy. 06/23/19 02:58 I have discussed with Dr. Medina who has graciously agreed to see and evaluate for admission. - Vital Signs Vital signs: Temp Pulse Resp BP Pulse Ox 98.3 F 79 18 107/74 100 06/22/19 21:54 06/22/19 21:54 06/23/19 02:01 06/23/19 02:00 06/23/19 02:01 - Laboratory Result Diagrams: 06/22/19 22:22 06/22/19 22:22 Laboratory results interpreted by me: 06/22/19 06/22/19 06/23/19 22:22 22:22 00:15 MCV 98 H MCH 33.9 H Carbonic Acid 1.40 H ABG pCO2 46.4 H ABG pO2 57.8 L ABG HCO3 27.0 H ABG Total CO2 28.4 H ABG O2 Saturation 89.5 L Urine Protein Urine Ascorbic Acid Salicylates 1.2 L Acetaminophen 238 H* 06/23/19 06/23/19 00:55 01:22 MCV MCH Carbonic Acid ABG pCO2 ABG pO2 ABG HCO3 ABG Total CO2 ABG O2 Saturation Urine Protein 30 H Urine Ascorbic Acid 20 H Salicylates Acetaminophen 162 H* - EKG Interpretation by Me EKG shows normal: Sinus rhythm Rate: Normal Rhythm: NSR - NSR Nl Flasher [address] elevation or depression my interpretation. Discharge - Discharge Clinical Impression: Suicidal ideation Acetaminophen overdose Qualifiers: Encounter type: initial encounter Injury intent: intentional self-harm Qualif ied Code(s): T39.1X2A - Poisoning by 4-Aminophenol derivatives, intentional self-harm, initial encounter Condition: Fair Disposition: ADMITTED OBSERVATION Admitting Provider: Adam (Hospitalist) Unit Admitted: [facility]
--- NOTE | 2019-06-22 22:30 | EKG REPORT ---
SEVERITY:- NORMAL ECG - SINUS RHYTHM : Confirmed by: Pramod Sweet 22-Jun-2019 22:30:10
[2019-06-22 22:48] LABS: ABSOLUTE LYMPHOCYTES (AUTO) 1.7 10^3/uL (0.5-4.7); ABSOLUTE MONOCYTES (AUTO) 0.5 10^3/uL (0.1-1.4); ABSOLUTE NEUT (AUTO) 3.8 10^3/uL (1.7-8.2); BASOPHILS % (AUTO) 0.4 % (0-2); EOSINOPHILS % (AUTO) 0.6 % (0-6); HEMATOCRIT 38.8 % (36.0-47.0); HEMOGLOBIN 13.4 g/dL (12.0-15.5); LYMPHOCYTES % (AUTO) 28.6 % (13-45); MEAN CORPUSCULAR HEMOGLOBIN 33.9 pg (27.0-33.4); MEAN CORPUSCULAR HGB CONC 34.6 g/dL (32.0-36.0); MEAN CORPUSCULAR VOLUME 98 fl (80-97); MONOCYTES % (AUTO) 8.6 % (3-13); PLATELET COUNT 290 10^3/uL (150-450); RED BLOOD COUNT 3.95 10^6/uL (3.72-5.28); RED CELL DISTRIBUTION WIDTH 13.1 % (11.5-14.0); SEGMENTED NEUTROPHILS % (AUTO) 61.8 % (42-78); TOTAL CELLS COUNTED % (AUTO) 100 %; WHITE BLOOD COUNT 6.1 10^3/uL (4.0-10.5)
[2019-06-22 22:58] LABS: ALBUMIN 4.2 g/dL (3.5-5.0); ALKALINE PHOSPHATASE 63 U/L (38-126); ANION GAP 12 (5-19); ASPARTATE AMINO TRANSFERASE 19 U/L (14-36); BILIRUBIN,TOTAL 1.2 mg/dL (0.2-1.3); BLOOD UREA NITROGEN 9 mg/dL (7-20); CALCIUM 9.9 mg/dL (8.4-10.2); CARBON DIOXIDE 27 mmol/L (22-30); CHLORIDE 102 mmol/L (98-107); GLUCOSE 95 mg/dL (75-110); POTASSIUM 3.9 mmol/L (3.6-5.0); SALICYLATE 1.2 mg/dL (2.0-20.0); TOTAL PROTEIN 7.3 g/dL (6.3-8.2)
[2019-06-22 23:06] LABS: ALCOHOL < 10 mg/dL (NONE DETECTED)
[2019-06-22 23:29] LABS: ACETAMINOPHEN 238 ug/mL (10-30)
[2019-06-23 00:32] LABS: ARTERIAL BLOOD BASE EXCESS 1.4 mmol/L; ARTERIAL BLOOD O2 SATURATION 89.5 % (94-98); ARTERIAL BLOOD PCO2 46.4 mmHg (35-45); ARTERIAL BLOOD PH 7.38 (7.35-7.45); ARTERIAL BLOOD PO2 57.8 mmHg (80-100); ARTERIAL BLOOD TOTAL CO2 28.4 mmol/L (21-25)
[2019-06-23 00:33] LABS: ARTERIAL BLOOD FIO2 ROOM AIR
[2019-06-23] MEDS ORDERED: ONDANSETRON HCL INJ/PF 4 MG/2 ML SDV IV ONE ×2 (01:09→09:20)
[2019-06-23 01:45] LABS: APPEARANCE,URINE CLEAR; BILIRUBIN,URINE NEGATIVE (NEGATIVE); COLOR,URINE YELLOW; GLUCOSE, URINE NEGATIVE (NEGATIVE); KETONES,URINE NEGATIVE (NEGATIVE); LEUKOCYTE ESTERASE,URINE NEGATIVE (NEGATIVE); NITRITE,URINE NEGATIVE (NEGATIVE); PROTEIN,URINE 30 mg/dL (NEGATIVE); URINE SPECIFIC GRAVITY 1.039; UROBILINOGEN,URINE NEGATIVE mg/dL (<2.0)
[2019-06-23 02:03] LABS: URINE AMPHETAMINES SCREEN NEGATIVE; URINE BARBITURATES SCREEN NEGATIVE; URINE BENZODIAZEPINES SCREEN NEGATIVE; URINE COCAINE SCREEN NEGATIVE; URINE MARIJUANA (THC) SCREEN NEGATIVE; URINE METHADONE SCREEN NEGATIVE; URINE PHENCYCLIDINE SCREEN NEGATIVE
[2019-06-23] MEDS ORDERED: ACETYLCYSTEINE INJ 6000 MG/30 ML IV PRN ×2 (02:47→02:48)
[2019-06-23] MEDS ORDERED: MAG HYDROX/AL HYDROX/SIMETH SUSP 30 ML UDCUP PO PRN (02:58)
[2019-06-23] MEDS ORDERED: WATER IV ONE ×7 (03:00→08:30)
[2019-06-23] MEDS ORDERED: ACETYLCYSTEINE IV ONE ×7 (03:00→08:30)
[2019-06-23] MEDS ORDERED: DEXTROSE 5% IV ONE ×7 (03:00→08:30)
[2019-06-23] MEDS ORDERED: LORAZEPAM INJ 2 MG/1 ML VIAL IV ONE (04:24)
[2019-06-23] MEDS: HEPARIN SOD (PORCINE) 5,000 UNIT/ML 1 ML VIAL SUBCUT SCH ×3 (05:39→21:52)
--- NOTE | 2019-06-23 06:19 | PDOC H&P ---
History of Present Illness Admission Date/PCP: 06/23/19 03:10 Patient complains of: Tylenol overdose History of Present Illness: FRANTZ MADRIGAL is a 29 year old female without significant past medical history presents via EMS after found with an empty bottle of Tylenol. Patient refuses to speak but nods affirmatively that she attempted suicide by Tylenol. She de nies pain but refuses additional questions. She is found to have a toxic acetaminophen level of 235 she started on Acetadote and referred to the hospitalist for admission. Past Medical History GI Medical History: Reports: Gastroesophageal Reflux Disease Past Surgical History Past Surgical History: Reports: None Social History Information Source: Emergency Med Personnel, [facility] Records Smoking Status: Never Smoker - Advance Directive Resuscitation Status: Full Code Family History Family History: Other - Refuses Parental Family History Reviewed: No - Refuses Children Family History Reviewed: No - Refused Sibling(s) Family History Reviewed.: No - Refused Medication/Allergy Home Medications: Metronidazole [Flagyl 500 mg Tablet] 500 mg PO TID #30 tablet 03/03/17 Sucralfate [Carafate 1 gm Tablet] 1 gm PO ACHS #14 tablet 11/09/18 Ketorolac Tromethamine [Toradol 10 mg Tablet] 10 mg PO Q8HP PRN #15 tablet 04/17/19 Ondansetron [Zofran Odt 4 mg Tablet] 1 - 2 tab PO Q4H PRN #15 tab.rapdis 04/17/19 Naproxen 500 mg PO BID PRN #14 tablet 05/14/19 Prednisone [Deltasone 20 mg Tablet] 2 tab PO DAILY 5 Days #10 tablet 05/14/19 Allergies/Adverse Reactions: No Known Allergies Allergy (Verified 01/12/19 20:36) Review of Systems ROS unobtainable: Due to mental status - Refused Physical Exam Vital Signs: Temp Pulse Resp BP Pulse Ox 98.3 F 79 21 H 139/102 H 98 06/22/19 21:54 06/22/19 21:54 06/23/19 06:01 06/23/19 06:00 06/23/19 06:00 Intake & Output 06/21/19 06/22/19 06/23/19 11:59 11:59 11:59 Intake Total 1254.525 Balance 1254.525 Weight 72.7 kg General appearance: PRESENT: no acute distress, well-developed, well-nourished Head exam: PRESENT: atraumatic, normocephalic Eye exam: PRESENT: conjunctiva pink, EOMI, PERRLA. ABSENT: scleral icterus Ear exam: PRESENT: normal external ear exam Mouth exam: PRESENT: moist, tongue midline Neck exam: ABSENT: carotid bruit, JVD, lymphadenopathy, thyromegaly Respiratory exam: PRESENT: clear to auscultation yudelka. ABSENT: rales, rhonchi, wheezes Cardiovascular exam: PRESENT: RRR. ABSENT: diastolic murmur, rubs, systolic murmur Pulses: PRESENT: normal dorsalis pedis pul Vascular exam: PRESENT: normal capillary refill GI/Abdominal exam: PRESENT: normal bowel sounds, soft. ABSENT: distended, guarding, mass, organolmegaly, rebound, tenderness Rectal exam: PRESENT: deferred Extremities exam: PRESENT: full ROM. ABSENT: calf tenderness, clubbing, pedal edema Neurological exam: PRESENT: alert, awake, oriented to person, oriented to place, oriented to time, oriented to situation, CN II-XII grossly intact. ABSENT: motor sensory deficit Psychiatric exam: PRESENT: appropriate affect, normal mood. ABSENT: homicidal ideation, suicidal ideation Skin exam: PRESENT: dry, intact, warm. ABSENT: cyanosis, rash Results Laboratory Results: 06/22/19 22:22 06/22/19 22:22 06/22/19 06/22/19 06/23/19 22:22 22:22 00:15 WBC 6.1 RBC 3.95 Hgb 13.4 Hct 38.8 MCV 98 H MCH 33.9 H MCHC 34.6 RDW 13.1 Plt Count 290 Seg Neutrophils % 61.8 Carbonic Acid 1.40 H HCO3/H2CO3 Ratio 19:1 ABG pH 7.38 ABG pCO2 46.4 H ABG pO2 57.8 L ABG HCO3 27.0 H ABG O2 Saturation 89.5 L ABG Base Excess 1.4 FiO2 ROOM AIR Sodium 141.0 Potassium 3.9 Chloride 102 Carbon Dioxide 27 Anion Gap 12 BUN 9 Creatinine 0.77 Est GFR ( Amer) > 60 Glucose 95 Calcium 9.9 Magnesium 1.8 Total Bilirubin 1.2 AST 19 Alkaline Phosphatase 63 Total Protein 7.3 Albumin 4.2 Urine Color Urine Appearance Urine pH Ur Specific [place] Urine Protein Urine Glucose (UA) Urine Ketones Urine Blood Urine Nitrite Ur Leukocyte Esterase Urine WBC (Auto) Urine RBC (Auto) 06/23/19 01:22 WBC RBC Hgb Hct MCV MCH MCHC RDW Plt Count Seg Neutrophils % Carbonic Acid HCO3/H2CO3 Ratio ABG pH ABG pCO2 ABG pO2 ABG HCO3 ABG O2 Saturation ABG Base Excess FiO2 Sodium Potassium Chloride Carbon Dioxide Anion Gap BUN Creatinine Est GFR ( Amer) Glucose Calcium Magnesium Total Bilirubin AST Alkaline Phosphatase Total Protein Albumin Urine Color YELLOW Urine Appearance CLEAR Urine pH 5.0 Ur Specific [place] 1.039 Urine Protein 30 H Urine Glucose (UA) NEGATIVE Urine Ketones NEGATIVE Urine Blood NEGATIVE Urine Nitrite NEGATIVE Ur Leukocyte Esterase NEGATIVE Urine WBC (Auto) 4 Urine RBC (Auto) 1 06/22/19 22:22 Troponin I < 0.012 Assessment and Plan - Diagnosis (1) Depression Is this a current diagnosis for this admission?: Yes Plan: Mental health consult (2) Acetaminophen overdose Qualifiers: Encounter type: initial encounter Injury intent: intentional self-harm Qualified Code(s): T39.1X2A - Poisoning by 4-Aminophenol derivatives, intentional self-harm, initial encounter Is this a current diagnosis for this admission?: Yes Plan: Acetadote initiated, follow-up LFTs and acetaminophen level. (3) Suicidal ideation Is this a current diagnosis for this admission?: Yes Plan: Suicide precautions, involuntary commitment, mental health consult - Time Time Spent with patient: 25-34 minutes - Inpatient Certification Medical Necessity: Need Close Monitoring Due to Risk of Patient Decompensation
[2019-06-23] MEDS: NORMAL SALINE 1000 ML 1,000 ML IV PRN (07:27)
[2019-06-23] MEDS ORDERED: ONDANSETRON HCL INJ/PF 4 MG/2 ML SDV ONE (09:23)
--- NOTE | 2019-06-23 11:46 | PSYCHOLOGICAL NOTE ---
Psych Note - Psych Note Date seen by psych provider: 06/23/19 Time seen by psych provider: 08:05 Psych Note: Reason For Consult:Intentional Overdose Consent Permissions:none provided 29 year old female arrives sullen and withdrawn with reports from EMS she was found next to a bottle of Tylenol that she apparently ingested. Patient reports she intentionally overdosed on Tylenol. She reports this is the first time she is ever done something like this but has been feeling depressed for "a while." She denies any mental health diagnosis or services in the past. Patient states she did not tell anybody she overdosed but someone must have called because she arrived to [facility] ED via EMS. Patient is alert and orientated to person, place, time and circumstance. Mood and affect are flat. Patient confirms intentional overdose. She is guarded and does not answer about current suicidal and homicidal ideation. Delusions are absent and behaviors congruent with an intact reality based presentation ie organized and linear thought process. Eye contact is poor. Conversational speech is very quiet and difficult to hear. Intellectual abilities appear to be within the average range. Attention and concentration are poor. Insight, judgment, impulse control are poor. Diagnosis: Intentional Overdose Medication recommendations per [facility]'s contracted psychiatrist Dr. Qiana ALFORD are as follows pending Impression\\plan: Patient is recommended for full IVC. Patient is not medically cleared and has been admitted as a medical patient to [facility]. Patient is very guarded and soft-spoken. She does confirm intentionally overdosing and states this is the first time she is ever done something like this. Patient be reevaluated. Dr. Rodriguez was consulted to care management of this patient; attending physicians in agreement with recommendations and disposition.
[2019-06-24] MEDS: NORMAL SALINE 1000 ML 1,000 ML IV PRN (00:43)
[2019-06-24] MEDS ORDERED: HALOPERIDOL LACTATE INJ 5 MG/1 ML VIAL IV ONE (01:15)
[2019-06-24 03:07] LABS: ALBUMIN 3.4 g/dL (3.5-5.0); ALKALINE PHOSPHATASE 39 U/L (38-126); ANION GAP 9 (5-19); ASPARTATE AMINO TRANSFERASE 17 U/L (14-36); BILIRUBIN,DIRECT 0.1 mg/dL (0.0-0.4); BILIRUBIN,TOTAL 1.4 mg/dL (0.2-1.3); BLOOD UREA NITROGEN 5 mg/dL (7-20); CALCIUM 9.1 mg/dL (8.4-10.2); CARBON DIOXIDE 25 mmol/L (22-30); CHLORIDE 106 mmol/L (98-107); GLUCOSE 121 mg/dL (75-110); POTASSIUM 3.3 mmol/L (3.6-5.0); TOTAL PROTEIN 6.2 g/dL (6.3-8.2)
[2019-06-24] MEDS: HEPARIN SOD (PORCINE) 5,000 UNIT/ML 1 ML VIAL SUBCUT SCH ×3 (05:43→22:30)
--- NOTE | 2019-06-24 11:11 | PDOC PROGRESS REPORT ---
Subjective Progress Note for:: 06/24/19 Subjective:: No adverse events overnight. Eating and drinking without difficulty. No nausea or abdominal pain. Reason For Visit: TYLENOL OVERDOSE Physical Exam Vital Signs: Temp Pulse Resp BP Pulse Ox 98.1 F 74 16 138/79 H 99 06/24/19 08:16 06/24/19 08:16 06/24/19 08:16 06/24/19 08:16 06/24/19 08:16 Intake & Output 06/23/19 06/24/19 06/25/19 06:59 06:59 06:59 Intake Total 7322.136 9290.175 Balance 4444.333 6705.175 Weight 72.7 kg 63.6 kg General appearance: PRESENT: no acute distress, cooperative, disheveled Respiratory exam: PRESENT: clear to auscultation yudelka, symmetrical, unlabored. ABSENT: accessory muscle use, chest wall tenderness, crackles, prolonged expiratory phas, rhonchi, tachypnea, wheezes Cardiovascular exam: PRESENT: RRR, +S1, +S2 Pulses: PRESENT: normal carotid pulses Vascular exam: PRESENT: normal capillary refill GI/Abdominal exam: PRESENT: normal bowel sounds, soft. ABSENT: distended, guarding, rebound, tenderness Extremities exam: ABSENT: clubbing, pedal edema Musculoskeletal exam: PRESENT: normal inspection. ABSENT: deformity Neurological exam: PRESENT: awake, oriented to person, oriented to place, oriented to situation Psychiatric exam: PRESENT: flat affect Skin exam: PRESENT: dry, warm Results Laboratory Results: 06/22/19 22:22 06/24/19 02:41 06/24/19 06/24/19 02:41 02:41 Sodium 139.7 Potassium 3.3 L Chloride 106 Carbon Dioxide 25 Anion Gap 9 BUN 5 L Creatinine 0.92 Est GFR ( Amer) > 60 Glucose 121 H Calcium 9.1 Total Bilirubin 1.4 H Cancelled AST 17 Cancelled Alkaline Phosphatase 39 Cancelled Total Protein 6.2 L Cancelled Albumin 3.4 L Cancelled 06/22/19 22:22 Troponin I < 0.012 Assessment and Plan - Diagnosis (1) Acetaminophen overdose Qualifiers: Encounter type: initial encounter Injury intent: intentional self-harm Qualified Code(s): T39.1X2A - Poisoning by 4-Aminophenol derivatives, intentional self-harm, initial encounter Is this a current diagnosis for this admission?: Yes (2) Depression Qualifiers: Depression Type: unspecified Qualified Code(s): F32.9 - Major depressive disorder, single episode, unspecified Is this a current diagnosis for this admission?: Yes (3) Suicidal ideation Is this a current diagnosis for this admission?: Yes - Plan Summary Summary: She has had Mucomyst treatment. Acetaminophen levels normal. No evidence of liver injury. She has been IVC'd and seen by behavioral health. She is medically cleared for placement. - Time Time Spent with patient: 15-24 minutes
[2019-06-25] MEDS: HEPARIN SOD (PORCINE) 5,000 UNIT/ML 1 ML VIAL SUBCUT SCH (06:16)
[2019-06-25 09:09] VITALS: BP 125/68
--- NOTE | 2019-06-25 17:11 | PDOC DISCHARGE SUMMARY ---
Impression - Admit/DC Date/PCP Admission Date/Primary Care Provider: 06/23/19 03:10 Discharge Date: 06/25/19 - Discharge Diagnosis (1) Acetaminophen overdose Is this a current diagnosis for this admission?: Yes (2) Depression Is this a current diagnosis for this admission?: Yes (3) Suicidal ideation Is this a current diagnosis for this admission?: Yes - Assessment Summary: She has had Mucomyst treatment. Acetaminophen levels normal. No evidence of liver injury. She has been IVC'd and seen by [facility]. She is medically cleared for placement. - Additional Information Resuscitation Status: Full Code Discharge Diet: As Tolerated Discharge Activity: Supervised Activity Home Medications: No Home Medications 06/23/19 History of Present Illiness History of Present Illness: FRANTZ MADRIGAL is a 29 year old female without significant past medical history presents via EMS after found with an empty bottle of Tylenol. Patient refuses to speak but nods affirmatively that she attempted suicide by Tylenol. She denies pain but refuses additional questions. She is found to have a toxic acetaminophen level of 235 she started on Acetadote and referred to the hospitalist for admission. Hospital Course Hospital Course: She was given a Mucomyst treatment and had an improvement in her acetaminophen levels. She never showed any signs of liver damage. She was medically cleared and placement was obtained in a psychiatric inpatient setting. She was transferred today in stable condition. Physical Exam Vital Signs: Temp Pulse Resp BP Pulse Ox 98.3 F 68 16 125/68 100 06/25/19 07:58 06/25/19 07:58 06/25/19 07:58 06/25/19 07:58 06/25/19 07:58 Intake & Output 06/24/19 06/25/19 06/26/19 06:59 06:59 06:59 Intake Total 2518.175 120 Balance 2518.175 120 Weight 63.6 kg 62 kg General appearance: PRESENT: no acute distress, cooperative, disheveled Respiratory exam: PRESENT: clear to auscultation yudelka, symmetrical, unlabored. ABSENT: accessory muscle use, chest wall tenderness, crackles, prolonged expiratory phas, rhonchi, tachypnea, wheezes Cardiovascular exam: PRESENT: RRR, +S1, +S2 Pulses: PRESENT: normal carotid pulses Vascular exam: PRESENT: normal capillary refill GI/Abdominal exam: PRESENT: normal bowel sounds, soft. ABSENT: distended, guarding, rebound, tenderness Extremities exam: ABSENT: clubbing, pedal edema Musculoskeletal exam: PRESENT: normal inspection. ABSENT: deformity Neurological exam: PRESENT: awake, oriented to person, oriented to place, oriented to situation Psychiatric exam: PRESENT: flat affect Skin exam: PRESENT: dry, warm Results Laboratory Results: WBC 6.1 10^3/uL (4.0-10.5) 06/22/19 22:22 RBC 3.95 10^6/uL (3.72-5.28) 06/22/19 22:22 Hgb 13.4 g/dL (12.0-15.5) 06/22/19 22:22 Hct 38.8 % (36.0-47.0) 06/22/19 22:22 MCV 98 fl (80-97) H 06/22/19 22:22 MCH 33.9 pg (27.0-33.4) H 06/22/19 22:22 MCHC 34.6 g/dL (32.0-36.0) 06/22/19 22:22 RDW 13.1 % (11.5-14.0) 06/22/19 22:22 Plt Count 290 10^3/uL (150-450) 06/22/19 22:22 Lymph % (Auto) 28.6 % (13-45) 06/22/19 22:22 [place] % (Auto) 8.6 % (3-13) 06/22/19 22:22 Eos % (Auto) 0.6 % (0-6) 06/22/19:22 Baso % (Auto) 0.4 % (0-2) 06/22/19 22:22 Absolute Neuts (auto) 3.8 10^3/uL (1.7-8.2) 06/22/19:22 Absolute Lymphs (auto) 1.7 10^3/uL (0.5-4.7) 06/22/19:22 Absolute Monos (auto) 0.5 10^3/uL (0.1-1.4) 06/22/19 22:22 Absolute Eos (auto) 0.0 10^3/uL (0.0-0.6) 06/22/19 22:22 Absolute Basos (auto) 0.0 10^3/uL (0.0-0.2) 06/22/19 22:22 Seg Neutrophils % 61.8 % (42-78) 06/22/19 22:22 Carbonic Acid 1.40 mmol/L (1.05-1.35) H 06/23/19 00:15 HCO3/H2CO3 Ratio 19:1 06/23/19 00:15 ABG pH 7.38 (7.35-7.45) 06/23/19 00:15 ABG pCO2 46.4 mmHg (35-45) H 06/23/19 00:15 ABG pO2 57.8 mmHg (80-100) L 06/23/19 00:15 ABG HCO3 27.0 mmol/L (20-24) H 06/23/19 00:15 ABG Total CO2 28.4 mmol/L (21-25) H 06/23/19 00:15 ABG O2 Saturation 89.5 % (94-98) L 06/23/19 00:15 ABG Base Excess 1.4 mmol/L 06/23/19 00:15 FiO2 ROOM AIR 06/23/19 00:15 Sodium 139.7 mmol/L (137-145) 06/24/19 02:41 Potassium 3.3 mmol/L (3.6-5.0) L 06/24/19 02:41 Chloride 106 mmol/L (98-107) 06/24/19 02:41 Carbon Dioxide 25 mmol/L (22-30) 06/24/19 02:41 Anion Gap 9 (5-19) 06/24/19 02:41 BUN 5 mg/dL (7-20) L 06/24/19 02:41 Creatinine 0.92 mg/dL (0.52-1.25) 06/24/19 02:41 Est GFR ( Amer) > 60 (>60) 06/24/19 02:41 Est GFR (MDRD) Non-Af > 60 (>60) 06/24/19 02:41 Glucose 121 mg/dL (75-110) H 06/24/19 02:41 POC Glucose 100 mg/dL (70-110) 06/22/19 22:18 Calcium 9.1 mg/dL (8.4-10.2) 06/24/19 02:41 Magnesium 1.8 mg/dL (1.6-2.3) 06/22/19 22:22 Total Bilirubin 1.4 mg/dL (0.2-1.3) H 06/24/19 02:41 Total Bilirubin Cancelled 06/24/19 02:41 Direct Bilirubin 0.1 mg/dL (0.0-0.4) 06/24/19 02:41 Direct Bilirubin Cancelled 06/24/19 02:41 Neonat Total Bilirubin Cancelled 06/24/19 02:41 Neonat Total Bilirubin Not Reportable 06/24/19 02:41 Neonat Direct Bilirubin Cancelled 06/24/19 02:41 Neonat Direct Bilirubin Not Reportable 06/24/19 02:41 Neonat Indirect Bili Cancelled 06/24/19 02:41 Neonat Indirect Bili Not Reportable 06/24/19 02:41 AST 17 U/L (14-36) 06/24/19 02:41 AST Cancelled 06/24/19 02:41 ALT 12 U/L (<35) 06/24/19 02:41 ALT Cancelled 06/24/19 02:41 Alkaline Phosphatase 39 U/L (38-126) 06/24/19 02:41 Alkaline Phosphatase Cancelled 06/24/19 02:41 Troponin I < 0.012 ng/mL 06/22/19 22:22 Total Protein 6.2 g/dL (6.3-8.2) L 06/24/19 02:41 Total Protein Cancelled 06/24/19 02:41 Albumin 3.4 g/dL (3.5-5.0) L 06/24/19 02:41 Albumin Cancelled 06/24/19 02:41 Urine Color YELLOW 06/23/19 01:22 Urine Appearance CLEAR 06/23/19 01:22 Urine pH 5.0 (5.0-9.0) 06/23/19 01:22 Ur Specific [place] 1.039 06/23/19 01:22 Urine Protein 30 mg/dL (NEGATIVE) H 06/23/19 01:22 Urine Glucose (UA) NEGATIVE mg/dL (NEGATIVE) 06/23/19 01:22 Urine Ketones NEGATIVE mg/dL (NEGATIVE) 06/23/19 01:22 Urine Blood NEGATIVE (NEGATIVE) 06/23/19 01:22 Urine Nitrite NEGATIVE (NEGATIVE) 06/23/19 01:22 Urine Bilirubin NEGATIVE (NEGATIVE) 06/23/19 01:22 Urine Urobilinogen NEGATIVE mg/dL (<2.0) 06/23/19 01:22 Ur Leukocyte Esterase NEGATIVE (NEGATIVE) 06/23/19 01:22 Urine WBC (Auto) 4 /HPF 06/23/19 01:22 Urine RBC (Auto) 1 /HPF 06/23/19 01:22 Urine Bacteria (Auto) TRACE /HPF 06/23/19 01:22 Squamous Epi Cells Auto 7 /HPF 06/23/19 01:22 Urine Mucus (Auto) MANY /LPF 06/23/19 01:22 Urine Ascorbic Acid 20 (NEGATIVE) H 06/23/19 01:22 Urine HCG, Qual NEGATIVE (NEGATIVE) 06/23/19 01:22 Salicylates 1.2 mg/dL (2.0-20.0) L 06/22/19 22:22 Urine Opiates Screen UNCONFIRMED POSITIVE 06/23/19 01:22 Urine Methadone Screen NEGATIVE 06/23/19 01:22 Acetaminophen < 10 ug/mL (10-30) L 06/24/19 02:41 Ur Barbiturates Screen NEGATIVE 06/23/19 01:22 Ur Phencyclidine Scrn NEGATIVE 06/23/19 01:22 Ur Amphetamines Screen NEGATIVE 06/23/19 01:22 U Benzodiazepines Scrn NEGATIVE 06/23/19 01:22 Urine Cocaine Screen NEGATIVE 06/23/19 01:22 U Marijuana (THC) Screen NEGATIVE 06/23/19 01:22 Serum Alcohol < 10 mg/dL (NONE DETECTED) 06/22/19 22:22 06/22/19 22:22 Troponin I < 0.012 Plan Time Spent: Greater than 30 Minutes Stroke Is this a Stroke Patient?: No Acute Heart Failure - Is this a Heart Failure Patient?: No
== END 2019-06-25 11:46 | DRG 918 ==
LOC: ER 21:47 → EH 06-23 03:10 → 3S 06-23 18:02
PROVIDERS: ADMIT Internal Medicine; ATTEND Internal Medicine
DX: T39.1X2A Poisoning by 4-Aminophenol derivatives, intentional self-harm, initial encounter (principal); Y92.038 Other place in apartment as the place of occurrence of the external cause; K21.9 Gastro-esophageal reflux disease without esophagitis; F32.9 Major depressive disorder, single episode, unspecified
CPT/HCPCS: 36415; 80053; 80307; 81001; 81025; 82803; 82962; 83735; 84484; 85025; 93005; 93010; 96361; 96374; 99285; J0132; J1630; J2060; J2405; J7030; J7060; J7120